=== PATIENT | male | born 1980 | race Caucasian/White ===

== ENCOUNTER 2019-11-15 21:17 | Emergency (ER) | payer BC, OTHER, SELFPAY ==
[~2019-11-15] VITALS: Ht 188 cm; Wt 101.2 kg
[2019-11-15 21:21] VITALS: BP 138/85
[2019-11-15] MEDS ORDERED: DIPHENHYDRAMINE 50 MG/ML, 1ML ONE (21:59)
[2019-11-15] MEDS ORDERED: DIAZEPAM 5 MG TABLET ONE (21:59)
[2019-11-15] MEDS ORDERED: DIAZEPAM 5 MG TABLET PO ONE (22:00)
--- NOTE | 2019-11-15 22:06 | NUR ---
LICENSED EMBALMER PER MAR.
[2019-11-15] MEDS ORDERED: FAMOTIDINE 20 MG TABLET ONE (22:12)
--- NOTE | 2019-11-15 22:20 | NUR ---
PT STATES ITCHING HAS GOTTEN BETTER.
[2019-11-15] MEDS ORDERED: FAMOTIDINE 20 MG TABLET PO ONE (22:30)
[2019-11-15] MEDS ORDERED: DIPHENHYDRAMINE 50 MG/ML, 1ML IM ONE (23:00)
== END 2019-11-15 22:51 | disposition home or self-care (01) ==
LOC: ED 22:20
DX: L50.9 Urticaria, unspecified (principal)
CPT/HCPCS: 96372; 99284; J1200; J7512

== ENCOUNTER 2020-12-23 08:41 | Outpatient (CLI) | payer OTHER ==
[2020-12-23 08:59] LABS: BASOPHILS % (AUTO) 0 % (0-1); EOSINOPHILS % (AUTO) 2 % (1-7); LYMPHOCYTES % (AUTO) 39 % (22-44); MEAN CORPUSCULAR HEMOGLOBIN 30.1 pg (27.5-34.5); MEAN CORPUSCULAR HGB CONC 34.4 g/dL (33.2-36.2); MEAN PLATELET VOLUME 7.5 fL (7.4-10.4); MONOCYTES % (AUTO) 7 % (2-9); NEUTROPHILS % (AUTO) 51 % (42-75); PLATELET COUNT 194 x10^3/uL (130-400); RED BLOOD COUNT 5.21 x10^6/uL (4.38-5.82); RED CELL DISTRIBUTION WIDTH 12.6 % (9.4-14.8)
[2020-12-23 09:10] LABS: ALANINE AMINOTRANSFERASE 30 U/L (12-78); ALBUMIN 4.2 g/dL (3.4-5.0); ANION GAP 4 mmol/L (5-15); CALCIUM 9.2 mg/dL (8.5-10.1); CHLORIDE 108 mmol/L (98-107)
[2020-12-23 09:12] LABS: ALKALINE PHOSPHATASE 93 U/L (45-117); BILIRUBIN,TOTAL 0.7 mg/dL (0.2-1.0); CHOL/HDL RATIO 3.9; CHOLESTEROL, TOTAL 178 mg/dL (140-239); CREATININE 0.81 mg/dL (0.7-1.3); HDL CHOL % 26 % (26-37); HDL CHOLESTEROL (DIRECT) 46 mg/dL (40-60); LDL CHOLESTEROL,CALCULATED 113 mg/dL (54-169); LDL/HDL RATIO 2.5 (0.5-3.0); TOTAL PROTEIN 7.7 g/dL (6.4-8.2); TRIGLYCERIDES 97 mg/dL (50-200); VLDL CHOLESTEROL 19 mg/dL (0-25)
== END 2020-12-23 23:59 | disposition home or self-care (01) ==
LOC: LAB 08:41
PROVIDERS: ATTEND Family Medicine
DX: Z13.228 Encounter for screening for other metabolic disorders (principal); R03.0 Elevated blood-pressure reading, without diagnosis of hypertension
CPT/HCPCS: 36415; 80053; 80061; 85025